=== PATIENT | female | born 2000 | race African-American/Black ===

== ENCOUNTER 2020-10-31 11:08 | Emergency (ER) | payer OTHER | END 2020-10-31 11:50 | disposition home or self-care (01) | LOC: CSHERS 11:08 | DX: L05.01 Pilonidal cyst with abscess (principal) | CPT/HCPCS: 99283 ==

== ENCOUNTER 2020-11-01 12:59 | Emergency (ER) | payer OTHER | END 2020-11-01 16:08 | disposition home or self-care (01) | LOC: CSHERS 12:59 | DX: L05.01 Pilonidal cyst with abscess (principal); L02.214 Cutaneous abscess of groin | CPT/HCPCS: 99283 ==